=== PATIENT | male | born 1975 | race Caucasian/White ===

== ENCOUNTER 2020-06-02 15:09 | Emergency (ER) | payer OTHER, SELFPAY ==
--- NOTE | ~2020-06-02 | CT_ITS ---
EXAMINATION: CT abdomen pelvis wo con DATE: 06/02/2020 19:00 INDICATION: Left flank pain. Nausea. TECHNIQUE: Computed tomography (CT) of the abdomen and pelvis was performed without intravenous contr ast. Automated exposure control and iterative reconstruction technique were employed. The dose-length product was 213.70 mGy-cm. COMPARISON: None. FINDINGS: The visualized portions of the lung bases demonstrate mild atelectasis. No pleural effusion . The heart size is normal. No pericardial effusion. There is diffuse hepatic steatosis. The gallblad jacqueline, spleen, pancreas, adrenal glands, and right kidney are normal. There is a 15 mm cyst in left kid yaritza. There is mild left hydronephrosis and hydroureter. There is a 3 mm stone in distal left ureter. There are small bilateral inguinal hernias containing fat. There are no dilated loops of bowel. The a ppendix is normal. There are no pathologically enlarged lymph nodes. There is no free intraperitoneal fluid. There is mild thoracic spondylosis. IMPRESSION: 1. 3 mm stone in distal left ureter with mild left hydronephrosis and hydroureter. Reviewed, dictated and finalized at location A. IMPRESSION: 1. 3 mm stone in distal left ureter with mild left hydronephrosis and hydrouret er.
[2020-06-02 15:45] VITALS: BP 149/102; PULSE 72; RESP 16; TEMP 36.4; O2SAT 98
[2020-06-02 15:55] LABS: Basophils Absolute Auto 0.1 K/mm3 (0.0-0.1); Basophils Percent Auto 1.6 % (0.2-1.2); Eosinophils Absolute Auto 0.1 K/mm3 (0-0.3); Eosinophils Percent Auto 2.1 % (0-4.4); Hematocrit 45.9 % (42.0-52.0); Hemoglobin 15.9 g/dL (14.0-18.0); Immature Granulocyte Absolute 0.03 K/mm3 (0.00-0.031); Immature Granulocyte Percent A 0.5 % (0-0.5); Lymphocytes Absolute Auto 1.87 K/mm3 (0.9-3.2); Lymphocytes Percent Auto 32.8 % (18.3-44.2); Mean Corpuscular HGB Conc 34.6 g/dl (32-36); Mean Corpuscular Volume 83.6 fl (80-100); Mean Platelet Volume 9.9 fl (7.4-10.4); Monocytes Absolute Auto 0.5 K/mm3 (0.1-0.6); Monocytes Percent Auto 9.5 % (2.6-8.5); Neutrophils Absolute Auto 3.1 K/mm3 (1.3-6.7); Neutrophils Percent Auto 53.5 % (45.5-73.1); Platelet Count Result 159 k/mm3 (150-375); Red Blood Count 5.49 M/mm3 (4.6-6.20); Red Cell Distribution Width 12.7 % (11.5-14.5); White Blood Count 5.7 K/mm3 (4.5-10.0)
[2020-06-02 16:09] LABS: Anion Gap 6 mmol/L (8-16); Blood Urea Nitrogen 21 mg/dL (9-20); Calcium 9.1 mg/dL (8.4-10.2); Carbon Dioxide 24 mmol/L (22-30); Chloride 109 mmol/L (98-107); Estimated CRCL calculation 57 ml/min; Estimated Glomerular Filt Rate 50; Glucose 105 mg/dL (75-110); Sodium 139 mmol/L (137-145)
[2020-06-02 17:16] LABS: Add Urine Microscopic? YES; Appearance Urine Clear (Clear); Bilirubin Urine Negative (Negative); Blood Urine 3+ (Negative); Color Urine Yellow (Yellow); Glucose Urine UA Negative (Negative); Ketones Urine Negative (Negative); Leukocyte Esterase Ur Negative LEU/UL (Negative); Mucus Urine Rare /lpf; Nitrate Urine Negative (Negative); Protein Urine 2+ mg/dL (Negative); RBC Urine >75 /hpf (0-2); Specific Grav Ur 1.029 (1.001-1.035); Squamous Epithelial Cell Urine Rare /hpf (Few); Urobilinogen Urine Negative mg/dL (<2.0); WBC Urine 0-3 /hpf
[2020-06-02 17:30] VITALS: BP 154/102; PULSE 66; RESP 17; TEMP 36.8; O2SAT 98
--- NOTE | 2020-06-02 17:32 | ED.ABDPAIN ---
HPI - Abdominal Pain General Chief Complaint: Urogenital-Male Stated Complaint: flank pain Time Seen by Provider: 06/02/20 17:30 Source: RN notes reviewed History of Present Illness HPI narrative: Patient presents emergency room from home for left flank pain. Patient states pain began last night located left flank and radiates around the left side the abdomen described as sharp and stabbing. Patient states the pain was severe approximately 45 minutes ago and is improved since then. states he took ibuprofen this morning with minimal relief. Denies any fevers or chills chest pain shortness of breath nausea vomiting diarrhea or any other symptoms. No history of kidney stones Related Data Allergies Allergy/AdvReac Type Severity Reaction Status Date / Time No Known Allergies Allergy Verified 06/02/20 17:32 Review of Systems Review of Systems: Narrative: Gen.: Denies fevers or chills ENT: Denies congestion Respiratory: Denies shortness of breath or cough CV: Denies chest pain or palpitations GI: See HPI denies burning, urgency, frequency or hematuria Musculoskeletal: Denies back pain or muscle pain Neuro: Denies numbness, tingling, weakness or focal weakness Skin: Denies rash Except as documented, all other systems reviewed and negative [facility] Past Medical History Medical History (Updated 06/02/20 @ 18:46 by Osmany Sierra DO) Patient denies significant medical history Social History Social History Smoking status: Never smoker Alcohol intake: current Gender identity (if verbalized by the patient): Male Exam Narrative: Exam Narrative: APPEARANCE: No acute distress, nontoxic, resting in bed EYES: EOMI HEENT: Normocephalic, atraumatic, OMM RESPIRATORY: No respiratory distress Clear to auscultation bilaterally with no rhonchi wheezing or rales. CARDIOVASCULAR: Regular rate and rhythm without murmurs rubs or gallops. ABDOMINAL: Soft, nontender, nondistended, no rebound or guarding, left flank tenderness MUSCULOSKELETAl: Moves all extremities. No clubbing, cyanosis or edema. NEURO: Awake and alert. Following commands, speech normal, no focal deficits SKIN:: Warm, dry. No rashes lesions or abrasions PSYCHIATRIC: Normal affect/mood, Course Vital Signs Vital signs: Vital Signs Temperature 97.5 F L 06/02/20 15:45 Pulse Rate 72 06/02/20 15:45 Respiratory Rate 16 06/02/20 15:45 Blood Pressure 149/102 H 06/02/20 15:45 Pulse Oximetry 98 06/02/20 15:45 Temperature 98.2 F 06/02/20 17:30 Pulse Rate 66 06/02/20 17:30 Respiratory Rate 17 06/02/20 17:30 Blood Pressure 154/102 H 06/02/20 17:30 Pulse Oximetry 98 06/02/20 17:30 MDM - Abdominal Pain Lab Data Result diagrams: 06/02/20 15:49 06/02/20 15:49 Labs: Lab Results 06/02/20 06/02/20 06/02/20 Range/Units 15:49 15:49 16:59 WBC 5.7 (4.5-10.0) K/mm3 RBC 5.49 (4.6-6.20) M/mm3 Hgb 15.9 (14.0-18.0) g/dL Hct 45.9 (42.0-52.0) % MCV 83.6 (80-100) fl MCH 29.0 (26-34) pg MCHC 34.6 (32-36) g/dl RDW 12.7 (11.5-14.5) % Plt Count 159 (150-375) k/mm3 MPV 9.9 (7.4-10.4) fl Immature Gran % (Auto) 0.5 (0-0.5) % Neut % (Auto) 53.5 (45.5-73.1) % Lymph % (Auto) 32.8 (18.3-44.2) % [place] % (Auto) 9.5 H (2.6-8.5) % Eos % (Auto) 2.1 (0-4.4) % Baso % (Auto) 1.6 H (0.2-1.2) % Lymph # (Auto) 1.87 (0.9-3.2) K/mm3 [place] # (Auto) 0.5 (0.1-0.6) K/mm3 Eos # (Auto) 0.1 (0-0.3) K/mm3 Baso # (Auto) 0.1 (0.0-0.1) K/mm3 Abs Immat Gran (auto) 0.03 (0.00-0.031) K/mm3 Absolute Neuts (auto) 3.1 (1.3-6.7) K/mm3 Absolute Nucleated RBC 0.0 (0.0-0.012) K/mm3 Nucleated RBC % 0.0 (0.0-0.2) % Sodium 139 (137-145) mmol/L Potassium 4.0 (3.4-5.0) mmol/L Chloride 109 H (98-107) mmol/L Carbon Dioxide 24 (22-30) mmol/L Anion Gap 6 L (8-16) m
[2020-06-02] MEDS: SODIUM CHLORIDE 0.9% IV 1,000 ML 999 ML IV CONT (18:12)
[2020-06-02] MEDS: TAMSULOSIN HCL 0.4 MG CAPSULE PO (19:22)
[2020-06-02 19:27] VITALS: BP 139/96; PULSE 98; RESP 17; O2SAT 98
== END 2020-06-02 19:33 | disposition home or self-care (01) ==
PROVIDERS: Emergency Medicine; Emergency Provider Emergency Medicine; PCP Internal Medicine
DX: N20.0 Calculus of kidney (principal)
CPT/HCPCS: 36415; 74176; 80048; 81001; 85025; 96374; 99284; A9270; J0131; J7030

== ENCOUNTER 2020-06-03 14:57 | Observation (INO) | payer OTHER, SELFPAY ==
--- NOTE | ~2020-06-03 | XR_ITS ---
XR abdomen/kub 1V 06/03/2020 16:10 INDICATION: Kidney stones. Left flank pain. TECHNIQUE: KUB COMPARISON: None FINDINGS: Bowel gas pattern is normal. There is no evidence of free air, mass, organomegaly, ascites or obstruction. There is a faint stone in the left pelvis corresponding to stones seen on CT dated . The bones appear intact. IMPRESSION: 1: Distal left ureteral stone measuring 1-2 mm. Reviewed, dictated and finalized at location B.
--- NOTE | ~2020-06-03 | XR_ITS ---
XR fluoroscopy no charge Pain management procedure TECHNIQUE: Fluoroscopy used during left ureteral stone extraction performed by [Michael bauer MD] on 06/04/2020. 16 seconds with 2 images captured. ]0.16 mGym2. ] FINDINGS: Correlate with procedure note. IMPRESSION: Fluoroscopy used during left ureteral stone extraction. Reviewed, dictated and finalized at location B.
[2020-06-03 15:29] VITALS: BP 135/81; PULSE 78; RESP 16; TEMP 36.8; O2SAT 100
[2020-06-03 15:46] LABS: Basophils Absolute Auto 0.1 K/mm3 (0.0-0.1); Basophils Percent Auto 0.5 % (0.2-1.2); Eosinophils Percent Auto 0.1 % (0-4.4); Hematocrit 44.5 % (42.0-52.0); Hemoglobin 15.5 g/dL (14.0-18.0); Immature Granulocyte Absolute 0.03 K/mm3 (0.00-0.031); Immature Granulocyte Percent A 0.3 % (0-0.5); Lymphocytes Absolute Auto 1.09 K/mm3 (0.9-3.2); Lymphocytes Percent Auto 11.9 % (18.3-44.2); Mean Corpuscular HGB Conc 34.8 g/dl (32-36); Mean Corpuscular Hemoglobin 28.8 pg (26-34); Mean Corpuscular Volume 82.7 fl (80-100); Mean Platelet Volume 10.2 fl (7.4-10.4); Monocytes Absolute Auto 0.7 K/mm3 (0.1-0.6); Neutrophils Absolute Auto 7.2 K/mm3 (1.3-6.7); Neutrophils Percent Auto 79.2 % (45.5-73.1); Platelet Count Result 166 k/mm3 (150-375); Red Blood Count 5.38 M/mm3 (4.6-6.20); Red Cell Distribution Width 12.6 % (11.5-14.5); White Blood Count 9.1 K/mm3 (4.5-10.0)
[2020-06-03 15:58] LABS: Anion Gap 10 mmol/L (8-16); Blood Urea Nitrogen 16 mg/dL (9-20); Calcium 9.2 mg/dL (8.4-10.2); Carbon Dioxide 23 mmol/L (22-30); Chloride 102 mmol/L (98-107); Estimated CRCL calculation 51 ml/min; Estimated Glomerular Filt Rate 44; Glucose 120 mg/dL (75-110); Potassium 4.1 mmol/L (3.4-5.0); Sodium 135 mmol/L (137-145)
[2020-06-03] MEDS: SODIUM CHLORIDE 0.9% IV 1,000 ML 999 ML IV CONT ×2 (16:34→19:45)
[2020-06-03] MEDS: fentaNYL CITRATE INJ (*CRX) 100 MCG/2 ML VIAL 50 MCG IV PUSH (16:34)
[2020-06-03] MEDS: MORPHINE SULFATE (*CRX) 2 MG/ML INJ IV PUSH ×3 (18:15→21:57)
[2020-06-03 18:53] LABS: Add Urine Microscopic? YES; Appearance Urine Clear (Clear); Bilirubin Urine Negative (Negative); Blood Urine 2+ (Negative); Color Urine Yellow (Yellow); Glucose Urine UA Negative (Negative); Ketones Urine Trace mg/dL (Negative); Leukocyte Esterase Ur Negative LEU/UL (Negative); Mucus Urine Rare /lpf; Nitrate Urine Negative (Negative); Protein Urine 2+ mg/dL (Negative); Specific Grav Ur 1.018 (1.001-1.035); Urobilinogen Urine Negative mg/dL (<2.0); WBC Urine 0-3 /hpf
[2020-06-03 19:30] VITALS: BP 148/92; PULSE 81; RESP 18; O2SAT 99
--- NOTE | 2020-06-03 19:30 | PC.NURSE ---
Report received at this time. Pt stating he is in a lot of pain at this time and feels like he is retaining urine. bladder scan completed at this time showing 130mL urine. fluids infusing at this time. provider at bedside to assess patient.
--- NOTE | 2020-06-03 19:59 | PC.NURSE ---
urinary catheter inserted at this time per provider verbal request. 120cc of yellow/clear urine out at this time.
--- NOTE | 2020-06-03 20:18 | ED.BACK ---
HPI - Back Pain/Injury General Chief Complaint: Back Pain/Injury Stated Complaint: jax flank pain/ ho kidney stone Time Seen by Provider: 06/03/20 16:17 Source: patient Mode of arrival: ambulatory Limitations: no limitations History of Present Illness HPI Narrative: Patient returns to emergency department after being seen in his emerge department yesterday and diagnosed with a 3 mm left lower ureter stone. Patient states that he has been taking his Flomax and hydrocodone but his pain has increased. Patient reports he has been able to urinate today and has not noted any stones. Patient denies fever, chills, vomiting, diarrhea, chest pain, shortness of breath or any other symptoms. Related Data Allergies Allergy/AdvReac Type Severity Reaction Status Date / Time No Known Allergies Allergy Verified 06/03/20 15:32 Review of Systems Review of Systems: Narrative: CONSTITUTIONAL: Denies fever, chills, or sweats. EYES: Denies visual changes, redness, or discharge. ENT: Denies rhinorrhea, congestion, sore throat, or otalgia. CARDIOVASCULAR: Denies chest pain, palpitations, or edema. RESPIRATORY: Denies cough or dyspnea. GASTROINTESTINAL: Denies abdominal pain, nausea, vomiting, or diarrhea. GENITOURINARY: Denies dysuria or notable hematuria. SKIN: Denies rash or itching. MUSCULOSKELETAL: Reports left-sided back pain denies joint pain, or myalgia. NEUROLOGIC: Denies headache, numbness, dizziness, or weakness. PSYCHIATRIC: Denies anxiety or depression. PMFSH Past Medical History Medical History (Updated 06/03/20 @ 21:53 by Taryn Flanagan PA-C) Patient denies significant medical history Social History Social History Smoking status: Never smoker Alcohol intake: current Gender identity (if verbalized by the patient): Male Exam Narrative: Exam Narrative: GENERAL: Well-appearing, well-nourished. Patient continuously moving and shifting his position. HEAD: Normocephalic, atraumatic. EYES: PERRLA and EOMI. ENT: Nares clear, no rhinorrhea or epistaxis. Mucous membranes moist. Oropharynx without tonsillar hypertrophy exudate or other lesions. Bilateral TMs pearly tay nonbulging NECK: Supple. No adenopathy or masses. CHEST: Clear to auscultation. No respiratory distress. No wheezes rales or rhonchi HEART: Regular rate and rhythm. No murmur heard. Normal peripheral pulses. ABDOMEN: Soft, nontender, nondistended, normal active bowel sounds. BACK: Pain with percussion of left lower back. EXTREMITIES: Normal range of motion. No edema. SKIN: Warm, dry, no rash. NEURO: No focal deficits. Alert and oriented x3. PSYCH: Normal mood and affect. Course Vital Signs Vital signs: Vital Signs Temperature 98.3 F 06/03/20 15:29 Pulse Rate 78 06/03/20 15:29 Respiratory Rate 16 06/03/20 15:29 Blood Pressure 135/81 06/03/20 15:29 Pulse Oximetry 100 06/03/20 15:29 Temperature 98.3 F 06/03/20 15:29 Pulse Rate 81 06/03/20 19:30 Respiratory Rate 18 06/03/20 19:30 Blood Pressure 148/92 H 06/03/20 19:30 Pulse Oximetry 99 06/03/20 19:30 MDM - Back Pain/Injury MDM Narrative Medical decision making narrative: Patient continues to complain of pain and discomfort. Patient states that he feels that he is retaining urine despite the ability to urinate and that he has urinated 3-4 times in emergency department. Patient states he feels that he should be urinating more. Patient was bladder scan and there was less than 140 mL of urine in his bladder. Linares catheter still in place due to patient complaints,which confirmed this. Patient has had 4 mg of morphine and 50 mcg of fentanyl. Patient is requesting Ativan. KUB confirmed a kidney stone is now 1 to 2 mm and is in the left lower ureter and is a stone noted on CT performed yesterday. There were no other kidney stones noted on the CT scan or KUB. Patient's creatinine is 1.7 when it was 1.5 yesterday.
[2020-06-03 21:15] VITALS: BP 140/92; PULSE 88; RESP 18; O2SAT 97
--- NOTE | 2020-06-03 22:00 | PC.NURSE ---
pina removed at this time per pt's request. BRIAN Flanagan aware
--- NOTE | 2020-06-03 22:48 | PC.NURSE ---
PT AMBULATORY TO RESTROOM AT THIS TIME WITHOUT DIFFICULTY
[2020-06-03 23:49] VITALS: BP 149/90; PULSE 80; RESP 14; O2SAT 100
[2020-06-04] VITALS (12 sets, daily range): BP systolic 92–152; BP diastolic 67–90; PULSE 71–90; RESP 15–20; TEMP 36.2–36.9; O2SAT 90–99; BMI 25.3
[2020-06-04] MEDS: MORPHINE SULFATE (*CRX) 4 MG/ML INJ IV PUSH (00:32)
[2020-06-04] MEDS: SODIUM CHLORIDE 0.9% IV 1,000 ML 150 ML IV CONT ×2 (00:35→06:58)
[2020-06-04] MEDS: ONDANSETRON INJ 4 MG/2 ML VIAL IV PUSH (00:37)
[2020-06-04] MEDS: HYDROcodone/acetaminophen (*CRX) 10-325 MG TABLET 1 TAB PO ×3 (03:15→13:43)
[2020-06-04] MEDS: HYDROmorphone HCL INJ (*CRX) 1 MG/ML SYR 0.5 MG IV PUSH (03:15)
--- NOTE | 2020-06-04 03:45 | PM.IMHP ---
H&P: HPI History of Present Illness Date/Time: 06/04/20 03:45 Chief complaint: ureterolithiasis, uncontrolled pain Narrative: Abdulaziz Bangura is a 44 year old male with a past medical history of migraines who presented to the ER with recurrent left flank pain. The patient had been evaluated in the ER on 06 02 2018 and was found to have a 3 mm left distal ureteral stone with mild left hydronephrosis and hydroureter. The patient had been discharged home with [place] and Flomax. The patient was sent with a referral to urology. The patient reports that he was drinking plenty of fluids but as the day went on his left flank pain continued to worsen. He reports that his pain was a 8/10 in intensity when he arrived to the ER. The patient had received multiple doses of morphine with little to no improvement in his pain. I switched the patient's pain medications to 0.5 mg of Dilaudid with significant improvement in his pain down to 2/10 in intensity. The patient also reports increased urinary urgency and feeling of incomplete bladder emptying. The patient had a Linares catheter placed in the ER and was bladder scanned which demonstrated only 150 mL remaining in his bladder. Patient has not been having any dysuria or gross hematuria. He denies any foul smelling urine. He has not had any fevers or chills. He had never had a prior kidney stone. 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 Review of Systems Review of Systems: Narrative: 12 systems were reviewed with pertinent positives and negatives per HPI. Except as documented in the HPI, all other systems were reviewed and are negative. 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 Demetrio Leo Smoking status: Never smoker Alcohol intake: current Drinks per week: 1 Alcohol use details: He drinks 1 alcoholic beverage every couple of weeks. Substance use: never Additional living arrangements comments: He lives alone. He has 2 children age 20 and 27 who are in good health. 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 Gender identity (if verbalized by the patient): Male Spiritual care concerns: No Meds Home Medications and Allergies Home Medications Medication Instructions Recorded Confirmed Type sumatriptan succinate 100 mg tablet 100 mg PO ONCE #9 tablet 08/22/19 06/04/20 Rx hydrocodone-acetaminophen 1 tablet PO Q4H PRN #10 tablet 06/02/20 06/04/20 Rx tamsulosin [Flomax] 0.4 mg PO DAILY #5 cap 06/02/20 06/04/20 Rx Allergies Allergy/AdvReac Type Severity Reaction Status Date / Time No Known Allergies Allergy Verified 06/03/20 15:32 Vital Signs Vital Signs - 24 hr 06/03/20 15:29 06/03/20 19:30 06/03/20 21:15 Temperature 98.3 F Pulse Rate 78 81 88 Respiratory Rate 16 18 18 Blood Pressure 135/81 148/92 H 140/92 H Pulse Oximetry 100 99 97 06/03/20 23:49 06/04/20 00:20 06/04/20 02:00 Temperature 98.5 F Pulse Rate 80 79 71 Respiratory Rate 14 17 20 Blood Pressure 149/90 H 144/86 H 130/75 Pulse Oximetry 100 99 98 Exam Narrative: Exam Narrative: PHYSICAL EXAM: WEIGHT 80.1 kg BMI 25.3 General: no acute distress, well-developed well-nourished, appears stated age HEENT: mucous membranes are moist, no oral pharyngeal erythema,
--- NOTE | 2020-06-04 06:45 | WPDURCON ---
Assessment and Plan Assessment and plan (1) Calculus of left ureter: Code(s): N20.1 - Calculus of ureter Status: Acute Assessment and Plan: Partially obstructing 1-2 mm left distal ureteral calculus. Will plan left ureteroscopy with stone extraction today. Anticipate discharge later this afternoon following stone extraction. Urology Consult Note HPI Date Seen: 06/04/20 Requesting Physician: Miryam Chao DO Primary Care Provider: Demetrio Leo DO Consult Narrative Narrative: Abdulaziz Bangura is a 44 year old male without history of urolithiasis has been in the ER twice in the past 2 days with left renal colic. Imaging, 1st with a CT and later with a KUB, shows a partially obstructing 1-2 mm left distal ureteral calculus. Patient's pain was not manageable as an outpatient, requiring admission for pain control and hydration. He has no prior history of urolithiasis, recurrent urinary tract infection hematuria or other urological problems. Review of Systems Cardiovascular: Cardiovascular: Denies chest pain, Denies lightheadedness, Denies palpitations and Denies dyspnea Respiratory: Respiratory: Denies dyspnea Gastrointestinal: Gastrointestinal: Denies diarrhea, Denies nausea and Denies vomiting Genitourinary: Genitourinary: Denies hematuria and Denies dysuria Endocrine: Endocrine: Denies palpitations PMFSH Past Medical History Medical History Migraine Family History Family History Sibling Migraine headache Father Hypertension Diabetes mellitus Mother Patient's mother is in good health Social History Social History Smoking status: Never smoker Alcohol intake: current Drinks per week: 1 Substance use: never Gender identity (if verbalized by the patient): Male Spiritual care concerns: No Meds Home Medications and Allergies Home Medications Medication Instructions Recorded Confirmed Type sumatriptan succinate 100 mg tablet 100 mg PO ONCE #9 tablet 08/22/19 06/04/20 Rx hydrocodone-acetaminophen 1 tablet PO Q4H PRN #10 tablet 06/02/20 06/04/20 Rx tamsulosin [Flomax] 0.4 mg PO DAILY #5 cap 06/02/20 06/04/20 Rx Allergies Allergy/AdvReac Type Severity Reaction Status Date / Time No Known Allergies Allergy Verified 06/03/20 15:32 Vital Signs Vital Signs - 24 hr 06/03/20 15:29 06/03/20 19:30 06/03/20 21:15 Temperature 98.3 F Pulse Rate 78 81 88 Respiratory Rate 16 18 18 Blood Pressure 135/81 148/92 H 140/92 H Pulse Oximetry 100 99 97 06/03/20 23:49 06/04/20 00:20 06/04/20 02:00 Temperature 98.5 F Pulse Rate 80 79 71 Respiratory Rate 14 17 20 Blood Pressure 149/90 H 144/86 H 130/75 Pulse Oximetry 100 99 98 06/04/20 06:00 Temperature 97.8 F Pulse Rate 74 Respiratory Rate 20 Blood Pressure 124/79 Pulse Oximetry 98 Exam Const: General: no acute distress Resp: Effort & Inspection: normal respiratory effort GI: Inspection: non-distended GI Palp: No abdominal tenderness and No Guarding due to palpation present (GI) Auscultation: normal bowel sounds Results Labs CBC & Chem 7: 06/03/20 15:39 06/03/20 15:39 Labs: Short CBC 06/03/20 Range/Units 15:39 WBC 9.1 (4.5-10.0) K/mm3 Hgb 15.5 (14.0-18.0) g/dL Hct 44.5 (42.0-52.0) % Plt Count 166 (150-375) k/mm3 BMP 06/03/20 15:39 Sodium 135 L Potassium 4.1 Chloride 102 Carbon Dioxide 23 BUN 16 Creatinine 1.70 H Glucose 120 H Calcium 9.2 Urine 06/03/20 Range/Units 18:42 Urine Color Yellow (Yellow) Urine Appearance Clear (Clear) Urine pH 5.0 (5.0-9.0) Ur Specific [place] 1.018 (1.001-1.035) Urine Protein 2+ H (Negative) mg/dL Urine Glucose (UA) Negative (Negative) mg/dL
--- NOTE | 2020-06-04 08:15 | PC.NURSE ---
To OR per albina, NIKITA intact. Report given to RYAN Ford.
--- NOTE | 2020-06-04 08:16 | WPDHPUPDATE1 ---
History and Physical Update Update Date/Time: 06/04/20 08:16 History and Physical has been reviewed, including an updated exam of the patient. There are NO changes in the patient's condition. Risks, benefits, and alternatives have been discussed and questions answered. Patient agrees to proceed with procedure. plan for cysto with left retrograde, left ureteroscopy with stone extraction, possible laser, stent.
--- NOTE | 2020-06-04 08:26 | WPDANESEPPF ---
Anes - Initial Pre Proc Eval Procedure: Operation Date: 06/04/20 14:00 Proposed Procedures p Cystoscopy, Left Ureteroscopy with Stone Extraction(Left) - Michael Guevara MD Date/Time: 06/04/20 08:26 Surgeon: Vivienne Conroy PA-C Pre Op Diagnosis: ureterolithiasis, uncontrolled pain Patient Data Age: 44 Gender: M Height: 5 ft 10 in Weight: 80.1 kg Last Vital Signs Temp 36.6 C 06/04/20 06:00 Pulse 74 06/04/20 06:00 Resp 20 06/04/20 06:00 BP 124/79 06/04/20 06:00 Pulse Ox 98 06/04/20 06:00 Allergies Allergy/AdvReac Type Severity Reaction Status Date / Time No Known Allergies Allergy Verified 06/03/20 15:32 Home Medications Medication Instructions Recorded Confirmed Type sumatriptan succinate 100 mg tablet 100 mg PO ONCE #9 tablet 08/22/19 06/04/20 Rx hydrocodone-acetaminophen 1 tablet PO Q4H PRN #10 tablet 06/02/20 06/04/20 Rx tamsulosin [Flomax] 0.4 mg PO DAILY #5 cap 06/02/20 06/04/20 Rx Laboratory Tests 06/03/20 06/03/20 06/03/20 15:39 15:39 18:42 WBC 9.1 K/mm3 K/mm3 (4.5-10.0) RBC 5.38 M/mm3 M/mm3 (4.6-6.20) Hgb 15.5 g/dL g/dL (14.0-18.0) Hct 44.5 % % (42.0-52.0) MCV 82.7 fl fl (80-100) MCH 28.8 pg pg (26-34) MCHC 34.8 g/dl g/dl (32-36) RDW 12.6 % % (11.5-14.5) Plt Count 166 k/mm3 k/mm3 (150-375) MPV 10.2 fl fl (7.4-10.4) Immature Gran % (Auto) 0.3 % % (0-0.5) Neut % (Auto) 79.2 % H % (45.5-73.1) Lymph % (Auto) 11.9 % L % (18.3-44.2) [place] % (Auto) 8.0 % % (2.6-8.5) Eos % (Auto) 0.1 % % (0-4.4) Baso % (Auto) 0.5 % % (0.2-1.2) Lymph # (Auto) 1.09 K/mm3 K/mm3 (0.9-3.2) [place] # (Auto) 0.7 K/mm3 H K/mm3 (0.1-0.6) Eos # (Auto) 0.0 K/mm3 K/mm3 (0-0.3) Baso # (Auto) 0.1 K/mm3 K/mm3 (0.0-0.1) Abs Immat Gran (auto) 0.03 K/mm3 K/mm3 (0.00-0.031) Absolute Neuts (auto) 7.2 K/mm3 H K/mm3 (1.3-6.7) Absolute Nucleated RBC 0.0 K/mm3 K/mm3 (0.0-0.012) Nucleated RBC % 0.0 % % (0.0-0.2) Sodium 135 mmol/L L mmol/L (137-145) Potassium 4.1 mmol/L mmol/L (3.4-5.0) Chloride 102 mmol/L mmol/L (98-107) Carbon Dioxide 23 mmol/L mmol/L (22-30) Anion Gap 10 mmol/L mmol/L (8-16) BUN 16 mg/dL mg/dL (9-20) Creatinine 1.70 mg/dL H mg/dL (0.7-1.3) Estim Creat Clear Calc 51 ml/min ml/min Estimated GFR 44 L (59 - ) Glucose 120 mg/dL H mg/dL (75-110) Calcium 9.2 mg/dL mg/dL (8.4-10.2) Urine Color Yellow (Yellow) Urine Appearance Clear (Clear) Urine pH 5.0 (5.0-9.0) Ur Specific [place] 1.018 (1.001-1.035) Urine Protein 2+ mg/dL H mg/dL (Negative) Urine Glucose (UA) Negative mg/dL mg/dL (Negative) Urine Ketones Trace mg/dL mg/dL (Negative) Ur Blood (Man) 2+ H (Negative) Urine Nitrate Negative (Negative) Urine Bilirubin Negative (Negative) Urine Urobilinogen Negative mg/dL mg/dL (<2.0) Leukocyte Esterase Rfl Negative ESTEFANIA/UL ESTEFANIA/UL (Negative) Urine RBC 11-20 /hpf H /hpf (0-2) Urine WBC 0-3 /hpf /hpf Urine Mucus Rare /lpf /lpf Patient hx anesthesia problems: none Family hx anesthesia problems: none PMFSH Past Medical History Medical History Migraine headache Surgical History Surgical History Hx of tonsillectomy S/P arthroscopic surgery of right knee 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
[2020-06-04] MEDS: LACTATED RINGERS 1,000 ML 30 ML IV CONT (08:28)
[2020-06-04] MEDS: ceFAZolin 2 GM/D5W 50 ML 2 GM/50 ML BAG IVPB (08:36)
[2020-06-04] MEDS: LIDOCAINE HCL 2% GEL UROJET 10 ML PKG MUCOUS MEM (08:47)
--- NOTE | 2020-06-04 08:59 | P.OP_ITS ---
Procedure Note - Detailed Date of procedure: 06/04/20 Pre-op diagnosis: ureterolithiasis, uncontrolled pain Post-op diagnosis: same Procedure performed: Cystoscopy, left ureteroscopy with stone extraction, Description of procedure: Patient is taken to the operative suite and correctly identified. Once anesthesia was obtained he was placed in the dorsal lithotomy position and prepped and draped usual sterile fashion. Twenty-two Ukrainian scope was inserted in bladder there is no tumors noted left ear orifice was cannulated with a guidewire and then dilated with an 8/10 dilator. A rigid ureteral scope was inserted the stone was seen which actually popped out of the orifice. Reinspection revealed no residual stone in the distal to mid ureter. The stone was sent for analysis. Given the minimal manipulation no stent was placed. 2% viscous lidocaine was inserted urethra patient is taken recovery room stable condition. From our standpoint if he tolerates things postoperatively he will be discharged home. Follow-up in 2-3 weeks time. Anesthesia: GLMA Surgeon: Michael Guevara MD Drains: No Packing: No Pathology: yes Complications: No immediate complications Condition: stable Disposition: PACU
--- NOTE | 2020-06-04 09:46 | SUR.OPER ---
intraop charted by christine griffith under crissy willett username
--- NOTE | 2020-06-04 10:21 | PC.NURSE ---
Returned from OR per stretcher. Report received from RYAN Qiu.
[2020-06-04] MEDS: TAMSULOSIN HCL 0.4 MG CAPSULE PO (10:32)
[2020-06-04 11:25] LABS: Anion Gap 7 mmol/L (8-16); Blood Urea Nitrogen 15 mg/dL (9-20); Calcium 8.4 mg/dL (8.4-10.2); Carbon Dioxide 21 mmol/L (22-30); Chloride 106 mmol/L (98-107); Estimated CRCL calculation 51 ml/min; Estimated Glomerular Filt Rate 44; Glucose 105 mg/dL (75-110); Sodium 134 mmol/L (137-145)
--- NOTE | 2020-06-04 13:32 | PM.DS ---
DS: Admitting Diagnosis Admitting Diagnosis Admitting Diagnosis: ureterolithiasis, uncontrolled pain DS: Discharge Diagnosis Discharge Diagnosis (1) Calculus of left ureter: Code(s): N20.1 - Calculus of ureter Status: Acute (2) Acute renal failure: Code(s): N17.9 - Acute kidney failure, unspecified Status: Acute DS: Summary Hospital Course Reason for hospitalization: Patient is a 44 year old man with a history of migraine headaches, who presented to the emergency room with gradually worsening left flank pain with radiation to his groin since Sunday. Came to the emergency department on 06/02/2020 and was found to have a 3 mm stone in the left distal ureter with mild hydronephrosis and hydroureter. He was discharged from the ER to continue pain medications and Flomax. Patient return to the emergency department on 06/03/2020 with gradually worsening pain and symptoms. He was admitted into the hospital under observation status with a consult to Urology. The patient underwent a cystoscopy with a stone extraction today, 06/04/2020 an is stable for discharge at this time from Urology and myself. Patient is feeling well still having 2/10 pain to his left side and left lower quadrant. He still has some slight blood when he starts urinating but otherwise does not have any retention or pain. Urology feels he does not need antibiotics or Flomax at this time. He will be discharged home with some pain medication for the next few days. Will follow-up with urology in 2-3 weeks. Status at Discharge Cognitive/behavioral status at discharge: Stable, improved. Time Spent with Patient Time attestation: Total time spent providing and/or coordinating discharge services: Time spent: Greater than 30 minutes Exam Narrative: Exam Narrative: General: 44-year-old man laying flat in bed with head elevated at 30%. Appears comfortable. In no acute distress. Skin: No jaundice or cyanosis. Good skin turgor. Neck: Full range of motion. Supple. Respiratory: Lungs are clear to auscultation bilaterally. No bony chest wall tenderness. Cardiovascular: The heart has a regular rate and rhythm without murmur. Lower extremities: No lower extremity edema. Distal pulses are easily palpated. No calf tenderness to palpation. Gastrointestinal: Slight tendernes to palpation of left lower quadrant. The abdomen is soft and nondistended with active bowel sounds. Psychiatric: Lucid and oriented. Memory intact. Neurologic: No focal deficits. Speech is clear. No facial drooping. DS: Data Data Completed and Pending Pending studies at discharge: Pending at discharge 06/04/20 08:52 Surgical [PTH] Routine Labs on day of discharge: Labs from last 24 hours 06/04/20 06/03/20 06/03/20 11:03 18:42 15:39 WBC RBC Hgb Hct MCV MCH MCHC RDW Plt Count MPV Immature Gran % (Auto) Neut % (Auto) Lymph % (Auto) [place] % (Auto) Eos % (Auto) Baso % (Auto) Lymph # (Auto) [place] # (Auto) Eos # (Auto) Baso # (Auto) Abs Immat Gran (auto) Absolute Neuts (auto) Absolute Nucleated RBC Nucleated RBC % Sodium 134 L 135 L Potassium 4.0 4.1 Chloride 106 102 Carbon Dioxide 21 L 23 Anion Gap 7 L 10 BUN 15 16 Creatinine 1.70 H 1.70 H Estim Creat Clear Calc 51 51 Estimated GFR 44 L 44 L Glucose 105 120 H Calcium 8.4 9.2 Urine Color Yellow Urine Appearance Clear Urine pH 5.0 Ur Specific [place] 1.018 Urine Protein 2+ H Urine Glucose (UA) Negative Urine Ketones Trace Ur Blood (Man) 2+ H Urine Nitrate Negative Urine Bilirubin Negative Urine Urobilinogen Negative Leukocyte Esterase Rfl Negative Urine RBC 11-20 H Urine WBC 0-3 Urine Mucus Rare 06/03/20 15:39 WBC 9.1 RBC 5.38 Hgb 15.5 Hct 44.5 MCV 82.7 MCH 28.8 MCHC 34.8 RDW 1
== END 2020-06-04 14:34 | disposition home or self-care (01) ==
LOC: ANHED 21:54 → ANH2MED 23:57
PROVIDERS: Urology; Admitting Provider Internal Medicine; Emergency Provider Emergency Medicine; PCP Internal Medicine; Visit Provider Family Medicine
PROC: (CPT 52352; principal; 2020-06-04 14:00)
DX: N20.1 Calculus of ureter (principal); N17.9 Acute kidney failure, unspecified; R33.9 Retention of urine, unspecified
CPT/HCPCS: 52320; 36415; 74018; 80048; 81001; 82365; 85025; 88300; 96361; 96374; 96375; 96376; 99285; A9270; C1769; G0378; J0690; J1100; J1170; J2250; J2270; J2405; J2704; J3010; J7030; J7120

== ENCOUNTER 2020-06-07 20:33 | Emergency (ER) | payer OTHER, SELFPAY ==
--- NOTE | ~2020-06-07 | CT_ITS ---
EXAMINATION: CT abdomen pelvis wo con DATE: 06/08/2020 01:05 INDICATION: Left flank pain. TECHNIQUE: Computed tomography (CT) of the abdomen and pelvis was performed without intravenous contr ast. Automated exposure control and iterative reconstruction technique were employed. The dose-length product was 230.30 mGy-cm. COMPARISON: CT abdomen and pelvis 06/02/2020 FINDINGS: The visualized portions of the lung bases demonstrate mild atelectasis. There are small ple ural effusions, left worse than right. The heart size is normal. No pericardial effusion. Again seen is mild elevation of right hemidiaphragm. The liver, gallbladder, spleen, pancreas, adrenal glands, a nd right kidney are normal. There is mild left hydronephrosis. There is asymmetric edema and free flu id in left perinephric space. There is left-sided hydroureter. There is a 2 mm density in distal left ureter. There is gas in the bladder lumen, consistent with recent instrumentation. There are bilater al inguinal hernias containing fat. There are no dilated loops of bowel. The appendix is normal. Ther e are no pathologically enlarged lymph nodes. There is mild thoracic spondylosis. IMPRESSION: 1. Worsened mild left hydronephrosis and hydroureter with worsened asymmetric edema and free fluid in left perinephric space. A 2 mm density in distal left ureter may be hemorrhage. 2. Small pleural effusions. Reviewed, dictated and finalized at location A. IMPRESSION: 1. Worsened mild left hydronephrosis and hydroureter with worsened asymmetric e billy and free fluid in left perinephric space. A 2 mm density in distal left ur eter may be hemorrhage. 2. Small pleural effusions.
[2020-06-07 20:41] VITALS: BP 150/99; PULSE 79; RESP 20; TEMP 36.9; O2SAT 98
[2020-06-07 20:52] LABS: Basophils Percent Auto 0.5 % (0.2-1.2); Eosinophils Absolute Auto 0.1 K/mm3 (0-0.3); Eosinophils Percent Auto 0.8 % (0-4.4); Hematocrit 39.9 % (42.0-52.0); Hemoglobin 13.8 g/dL (14.0-18.0); Immature Granulocyte Absolute 0.03 K/mm3 (0.00-0.031); Immature Granulocyte Percent A 0.4 % (0-0.5); Lymphocytes Absolute Auto 1.24 K/mm3 (0.9-3.2); Lymphocytes Percent Auto 16.5 % (18.3-44.2); Mean Corpuscular HGB Conc 34.6 g/dl (32-36); Mean Corpuscular Hemoglobin 28.6 pg (26-34); Mean Corpuscular Volume 82.6 fl (80-100); Mean Platelet Volume 9.4 fl (7.4-10.4); Monocytes Percent Auto 12.6 % (2.6-8.5); Neutrophils Absolute Auto 5.2 K/mm3 (1.3-6.7); Neutrophils Percent Auto 69.2 % (45.5-73.1); Platelet Count Result 210 k/mm3 (150-375); Red Blood Count 4.83 M/mm3 (4.6-6.20); Red Cell Distribution Width 12.5 % (11.5-14.5); White Blood Count 7.5 K/mm3 (4.5-10.0)
[2020-06-07 21:04] LABS: Alanine Aminotransferase 111 U/L (4-50); Albumin Level 3.6 g/dL (3.5-5.1); Alkaline Phosphatase 107 U/L (38-126); Anion Gap 7 mmol/L (8-16); Aspartate Amino Transferase 122 U/L (17-59); Blood Urea Nitrogen 23 mg/dL (9-20); Carbon Dioxide 25 mmol/L (22-30); Chloride 102 mmol/L (98-107); Estimated CRCL calculation 43 ml/min; Estimated Glomerular Filt Rate 36; Glucose 121 mg/dL (75-110); Lipase 101 U/L (23-300); Potassium 3.4 mmol/L (3.4-5.0); Sodium 134 mmol/L (137-145)
[2020-06-07 21:12] LABS: Add Urine Microscopic? YES; Appearance Urine Clear (Clear); Bilirubin Urine Negative (Negative); Blood Urine 3+ (Negative); Color Urine Yellow (Yellow); Glucose Urine UA Negative (Negative); Ketones Urine Negative (Negative); Leukocyte Esterase Ur Negative LEU/UL (Negative); Mucus Urine Rare /lpf; Nitrate Urine Negative (Negative); Protein Urine 2+ mg/dL (Negative); RBC Urine >75 /hpf (0-2); Specific Grav Ur 1.019 (1.001-1.035); Urobilinogen Urine Negative mg/dL (<2.0); WBC Urine 0-3 /hpf
--- NOTE | 2020-06-08 00:48 | ED.ABDPAIN ---
HPI - Abdominal Pain General Chief Complaint: Abdominal Pain Stated Complaint: kidney pain ,3rd visit Time Seen by Provider: 06/08/20 00:47 Source: patient History of Present Illness HPI narrative: Pt c/o left flank pain, sharp, non radiating, 06/26, started today. Pt states he was diagnosed with a kidney stone, left side, this past Sunday, had a cystoscopy and had the stone removed. Pt denies n/v or fever. MD elicited complaint: flank pain Related Data Home Medications Medication Instructions Recorded Confirmed hydrocodone-acetaminophen 06/08/20 ibuprofen 06/08/20 06/08/20 tamsulosin mg PO 06/08/20 Allergies Allergy/AdvReac Type Severity Reaction Status Date / Time No Known Allergies Allergy Verified 06/07/20 09:24 Review of Systems Review of Systems: All systems reviewed & are unremarkable except as noted in HPI and below Constitutional: Constitutional: Denies body ache(s), Denies chills, Denies excessive sweating, Denies fatigue, Denies fever(s), Denies headache(s), Denies lethargy, Denies malaise, Denies weakness and Denies weight loss Eyes: Eyes: Denies blurry vision, Denies change in vision and Denies loss of vision ENT: Denies dizziness, Denies ear discharge, Denies headache(s), Denies lip swelling, Denies epistaxis, Denies nasal congestion, Denies neck pain, Denies throat swelling and Denies tongue swelling Cardiovascular: Cardiovascular: Denies chest pain, Denies chest pain at rest, Denies chest pain with activity, Denies diaphoresis, Denies rapid heart rate, Denies edema, Denies irregular heart rhythm, Denies lightheadedness, Denies palpitations, Denies dyspnea and Denies dyspnea on exertion Respiratory: Respiratory: Denies chest congestion, Denies cough, Denies hemoptysis, Denies dyspnea and Denies dyspnea on exertion Gastrointestinal: Gastrointestinal: Denies abdominal pain, Denies melena, Denies hematochezia, Denies diarrhea, Denies nausea, Denies vomiting and Denies hematemesis Musculoskeletal: Musculoskeletal: Denies abnormal gait, Denies deformity, Denies joint swelling, Denies limited range of motion, Denies neck pain and Denies numbness Neurologic: Denies Abnormal speech present, Denies abnormal gait, Denies confusion, Denies dizziness, Denies headache(s), Denies focal weakness, Denies loss of vision, Denies numbness, Denies Other visual disturbances, Denies Sensory deficit (Neuro) and Denies weakness Psychiatric: Psychiatric: Denies confusion, Denies depression, Denies auditory hallucinations, Denies homicidal ideation and Denies suicidal ideation Endocrine: Endocrine: Denies cold intolerance, Denies excessive sweating, Denies fatigue, Denies heat intolerance and Denies palpitations Hematologic/Lymphatic: Hematologic/Lymphatic: Denies easy bleeding and Denies easy bruising Allergic/Immunologic: Allergic/Immunologic: Denies lip swelling, Denies throat swelling and Denies tongue swelling PMFSH Social History Social History Social History: Primary care physician: Dr. Demetrio Leo Smoking status: Never smoker Alcohol intake: current Drinks per week: 1 Substance use: never Additional living arrangements comments: He lives alone. He has 2 children age 20 and 27 who are in good health. 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 Gender identity (if verbalized by the patient): Male Spiritual care concerns: No Exam Const: Orientation/consciousness: oriented to person, oriented to place, oriented to time, patient oriented x3 and No confusion Limitations: no limitations Other: moderate distress HENMT: Head: normal to inspection, normocephalic and atraumatic Ears: hearing grossly normal bilaterally, TM normal on the right and TM normal on the left General nose exam: Normal external nose present, Normal nares present and No nasal discharge present Face and sinus: nor
[2020-06-08] MEDS: PROMETHAZINE HCL 25 MG/ML AMPUL 12.5 MG IV PUSH (01:10)
[2020-06-08] MEDS: LACTATED RINGERS 1,000 ML 999 ML IV CONT (01:10)
[2020-06-08] MEDS: HYDROmorphone HCL INJ (*CRX) 1 MG/ML SYR 0.5 MG IV PUSH ×2 (01:11→05:23)
[2020-06-08 01:12] VITALS: BP 155/99; PULSE 80; RESP 18; O2SAT 96
[2020-06-08 02:29] VITALS: BP 142/92; PULSE 78; RESP 20; O2SAT 97
[2020-06-08 04:34] VITALS: BP 149/90; PULSE 79; RESP 18; O2SAT 96
[2020-06-08 05:21] VITALS: BP 151/92; PULSE 86; RESP 20; O2SAT 99
[2020-06-08] MEDS: KETOROLAC 15 MG/ML VIAL (*BKC) IV PUSH (05:22)
[2020-06-08 06:10] VITALS: BP 129/82; PULSE 73; RESP 18; O2SAT 95
== END 2020-06-08 06:20 | disposition home or self-care (01) ==
PROVIDERS: Emergency Provider Emergency Medicine; PCP Internal Medicine
DX: N13.2 Hydronephrosis with renal and ureteral calculous obstruction (principal); R31.29 Other microscopic hematuria
CPT/HCPCS: 36415; 74176; 80053; 81001; 83690; 85025; 96361; 96374; 96375; 96376; 99284; J1170; J1885; J2550; J7120